=== PATIENT | male | born 1950 | race Two or more races ===

== ENCOUNTER 2023-04-17 18:14 | Inpatient (IN) | payer OTHER ==
[~2023-04-17] VITALS: Ht 170.2 cm; Wt 62.6 kg
[2023-04-17 20:00] VITALS: BP 96/56; PULSE 72; PULSE 78; RESP 18; TEMP 98.1; O2SAT 95
[2023-04-17] MEDS ORDERED: MORPHINE SULFATE INJ 2 MG/ml SYRG IV PRN ×2 (20:45)
[2023-04-17] MEDS ORDERED: NITROGLYCERIN 0.4 MG SL TAB SL PRN (20:45)
[2023-04-17] MEDS ORDERED: ONDANSETRON HCL 4 MG/2 ML VIAL IV PRN (20:45)
[2023-04-17] MEDS ORDERED: hydrALAZINE HCL 10 MG TAB PO PRN (20:45)
[2023-04-17] MEDS ORDERED: ACETAMINOPHEN 325 MG TAB PO PRN (20:45)
[2023-04-17 20:51] VITALS: BP 96/56; PULSE 78; RESP 18; TEMP 98.1; O2SAT 95
[2023-04-17] MEDS ORDERED: TAMS0.4C36 PO (21:20)
[2023-04-17] MEDS ORDERED: METO25TA5 PO (21:20)
[2023-04-17] MEDS ORDERED: ASPI81CH74 PO (21:20)
[2023-04-17] MEDS ORDERED: THIA100T10 GT (21:20)
[2023-04-17] MEDS ORDERED: ATOR40TA52 PO (21:20)
[2023-04-17] MEDS ORDERED: MAGN400T40 PO (21:20)
[2023-04-17] MEDS ORDERED: DOCU-94 PO (21:20)
[2023-04-17] MEDS ORDERED: MULTTAB75 PO (21:20)
[2023-04-17] MEDS ORDERED: FOLI-119 PO (21:20)
[2023-04-17] MEDS ORDERED: AMIO200T33 PO (21:20)
[2023-04-17] MEDS: METOPROLOL TARTRATE 25 MG TAB PO SCH (22:00)
[2023-04-17] MEDS: DOCUSATE SOD 100 MG CAP PO SCH (22:57)
[2023-04-17] MEDS: AMIODARONE HCL 200 MG TAB PO SCH (22:58)
[2023-04-17] MEDS: ATORVASTATIN 20 MG TAB PO SCH (22:58)
[2023-04-17] MEDS: HYDROcodone-ACET 5/325MG TAB PO PRN (23:00)
[2023-04-17 23:56] LABS: INR 1.15 (0.9-1.15)
[2023-04-18] VITALS (7 sets, daily range): BP systolic 96–126; BP diastolic 51–67; PULSE 58–71; RESP 18–20; TEMP 98.2–98.6; O2SAT 93–97
[2023-04-18 00:09] LABS: Chloride 104 mmol/L (98-107); Potassium 3.5 mmol/L (3.5-5.1); Sodium 137 mmol/L (136-145)
[2023-04-18 00:10] LABS: Anion Gap 8 (5-15); Calcium 9.2 mg/dL (8.7-10.4); Carbon Dioxide 25 mmol/L (20-30)
[2023-04-18 00:15] LABS: BUN/Creatinine Ratio 13.3 (10.0-20.0); Blood Urea Nitrogen 14 mg/dL (9-23); Glucose 103 mg/dL (74-106)
[2023-04-18] MEDS ORDERED: ENOXAPARIN SOD 40 MG/0.4 ML SYRINGE SC ONE (00:30)
[2023-04-18 07:10] LABS: Basophils # (auto) 0.1 10 ^3/uL (0-0.2); Basophils % (auto) 0.8 % (0.0-2.0); Chloride 107 mmol/L (98-107); Eosinophils # (auto) 0.2 10 ^3/uL (0-0.8); Eosinophils % (auto) 2.3 % (0.0-7.0); Hematocrit 30.4 % (41.0-53.0); Lymphocytes # (auto) 1.7 10 ^3/uL (0.4-5.4); Mean Corpuscular Hemoglobin 32.1 pg (28.0-32.0); Mean Corpuscular Hgb Conc. 32.9 g/dL (32.0-36.0); Mean Corpuscular Volume 97.7 fL (80.0-100.0); Monocytes # (auto) 0.7 10 ^3/uL (0-1.3); Neutrophils % (auto) 68.9 % (37.0-80.0); Nucleated Red Blood Cells % 0.1 %; Potassium 4.5 mmol/L (3.5-5.1); Red Blood Cells 3.11 10^6/uL (4.5-5.90); Red Cell Distribution Width 14.7 % (11.8-14.3); Sodium 140 mmol/L (136-145); White Blood Cell 8.7 10^3/uL (4.4-10.8)
[2023-04-18 07:11] LABS: Anion Gap 8 (5-15); Calcium 9.4 mg/dL (8.5-10.1); Carbon Dioxide 25 mmol/L (20-30)
[2023-04-18 07:16] LABS: BUN/Creatinine Ratio 18.6 (10.0-20.0); Blood Urea Nitrogen 19 mg/dL (9-23); Glucose 86 mg/dL (74-106)
[2023-04-18] MEDS ORDERED: APIX5TAB PO (07:30)
[2023-04-18] MEDS: HYDROcodone-ACET 5/325MG TAB PO PRN ×2 (08:38→17:58)
[2023-04-18] MEDS: ASPirin 81 mg TAB PO SCH (08:38)
[2023-04-18] MEDS: AMIODARONE HCL 200 MG TAB PO SCH (08:39)
[2023-04-18] MEDS: DOCUSATE SOD 100 MG CAP PO SCH ×2 (08:39→22:13)
[2023-04-18] MEDS: MULTIPLE VITAMINS W/ MINERALS TAB PO SCH (08:39)
[2023-04-18] MEDS: MAGNESIUM OXIDE 400 MG TAB PO SCH (08:39)
[2023-04-18] MEDS: METOPROLOL TARTRATE 25 MG TAB PO SCH ×2 (08:40→22:00)
[2023-04-18] MEDS: FOLIC ACID 1 MG TAB PO SCH (08:40)
[2023-04-18] MEDS: APIXABAN 5 MG TAB PO SCH ×2 (11:45→22:13)
[2023-04-18] MEDS ORDERED: TAMSULOSIN HYDROCHLORIDE 0.4 MG CAP PO SCH (18:00)
[2023-04-18] MEDS: ATORVASTATIN 20 MG TAB PO SCH (22:13)
[2023-04-19] MEDS: HYDROcodone-ACET 5/325MG TAB PO PRN ×2 (00:52→09:41)
[2023-04-19 04:56] VITALS: BP_SYST 102; BP_SYST 119; BP_SYST 96; BP_DIAS 59; BP_DIAS 62; BP_DIAS 64; PULSE 18; PULSE 59; PULSE 96; RESP 18; TEMP 98.6
[2023-04-19 06:59] LABS: Basophils # (auto) 0 10 ^3/uL (0-0.2); Basophils % (auto) 0.6 % (0.0-2.0); Eosinophils # (auto) 0.4 10 ^3/uL (0-0.8); Eosinophils % (auto) 5.2 % (0.0-7.0); Hematocrit 30.6 % (41.0-53.0); Hemoglobin 10.2 g/dL (13.5-17.5); Lymphocytes # (auto) 1.9 10 ^3/uL (0.4-5.4); Lymphocytes % (auto) 25.4 % (10.0-50.0); Mean Corpuscular Hemoglobin 32.4 pg (28.0-32.0); Mean Corpuscular Hgb Conc. 33.4 g/dL (32.0-36.0); Mean Corpuscular Volume 97.1 fL (80.0-100.0); Monocytes # (auto) 0.6 10 ^3/uL (0-1.3); Monocytes % (auto) 7.9 % (0.0-12.0); Neutrophils # (auto) 4.5 10 ^3/uL (1.6-8.6); Neutrophils % (auto) 60.9 % (37.0-80.0); Red Blood Cells 3.16 10^6/uL (4.5-5.90); Red Cell Distribution Width 14.6 % (11.8-14.3); White Blood Cell 7.4 10^3/uL (4.4-10.8)
[2023-04-19 07:00] LABS: Alanine Aminotransferase 19 U/L (7-40); Alkaline Phosphatase 108 U/L (46-116); Anion Gap 9 (5-15); Aspartate Aminotransferase 18 U/L (13-40); BUN/Creatinine Ratio 15.2 (10.0-20.0); Bilirubin, Total 0.3 mg/dL (0.2-1.0); Blood Urea Nitrogen 14 mg/dL (9-23); Calcium 9.5 mg/dL (8.5-10.1); Carbon Dioxide 25 mmol/L (20-30); Chloride 105 mmol/L (98-107); Glucose 82 mg/dL (74-106); Sodium 139 mmol/L (136-145); Total Protein 6.9 g/dL (5.7-8.2)
[2023-04-19 08:00] VITALS: PULSE 61; PULSE 62; RESP 15; O2SAT 94
[2023-04-19] MEDS: ASPirin 81 mg TAB PO SCH (09:40)
[2023-04-19] MEDS: MAGNESIUM OXIDE 400 MG TAB PO SCH (09:41)
[2023-04-19] MEDS: FOLIC ACID 1 MG TAB PO SCH (09:42)
[2023-04-19] MEDS: APIXABAN 5 MG TAB PO SCH (09:42)
[2023-04-19] MEDS: MULTIPLE VITAMINS W/ MINERALS TAB PO SCH (09:42)
[2023-04-19] MEDS: METOPROLOL TARTRATE 25 MG TAB PO SCH (09:45)
[2023-04-19] MEDS: DOCUSATE SOD 100 MG CAP PO SCH (09:45)
[2023-04-19] MEDS ORDERED: AMIODARONE HCL 200 MG TAB PO SCH (10:00)
[2023-04-19 16:30] VITALS: BP 124/69; PULSE 61
== END 2023-04-19 17:00 | disposition home health service (06) | DRG 312 ==
LOC: TELE-EAST 20:35
PROVIDERS: ADMIT Internal Medicine; ATTEND Internal Medicine
DX: R55 Syncope and collapse (principal); I10 Essential (primary) hypertension; I48.91 Unspecified atrial fibrillation; J44.9 Chronic obstructive pulmonary disease, unspecified; N40.0 Benign prostatic hyperplasia without lower urinary tract symptoms; E78.5 Hyperlipidemia, unspecified; I25.10 Atherosclerotic heart disease of native coronary artery without angina pectoris; Z95.1 Presence of aortocoronary bypass graft; Z79.01 Long term (current) use of anticoagulants; Z87.891 Personal history of nicotine dependence
CPT/HCPCS: 36415; 80048; 80053; 84484; 85025; 85379; 85610; 87081; 93005; 93306; G0378